=== PATIENT | female | born 1950 | race African-American/Black ===

== ENCOUNTER 2024-11-04 08:14 | Outpatient (CLI) | payer MEDICARE, OTHER, SELFPAY | END 2024-11-04 08:15 | disposition home or self-care (01) | PROVIDERS: Visit Provider Family Medicine | DX: S89.91XA Unspecified injury of right lower leg, initial encounter (principal); S89.92XA Unspecified injury of left lower leg, initial encounter; W03.XXXA Other fall on same level due to collision with another person, initial encounter; Y92.009 Unspecified place in unspecified non-institutional (private) residence as the place of occurrence of the external cause | CPT/HCPCS: A0425; A0429 ==